=== PATIENT | female | born 1990 | race Caucasian/White ===

== ENCOUNTER 2020-08-16 15:24 | Outpatient (CLI) | payer BC, SELFPAY ==
--- NOTE | ~2020-08-16 | US_ITS ---
EXAMINATION: US OB <= 14 weeks fetus DATE: 08/16/2020 16:03 INDICATION: Depression of menstruation . Dating of during first trimester. TECHNIQUE: Real-time pelvic ultrasound utilizing both a transvaginal and transabdominal probe was pe rformed. The interpreting radiologist was not present for the study. COMPARISON: None. FINDINGS: The uterus measures 9.0 x 5.5 x 6.1 cm. There is an intrauterine gestational sac. A yolk sac and fet al pole are identified. The crown rump length measures 1.8 cm, which correlates with an estimated ges tational age of 8 weeks and 2 days. heart motion is identified measuring 178 beats per minute ( bpm) by M-mode Doppler. The right ovary measures 3.1 x 1.4 x 1.4 cm. The left ovary measures 2.7 x 1.6 x 1.3 cm. Vascular fred w identified in both ovaries on color Doppler. There is no free fluid in the pelvis. IMPRESSION: 1. Single living fetus with heart rate of 178 bpm. 2. Gestational age by ultrasound of 8 weeks 2 day(s) +/- 5 day(s) with ultrasound estimated date of delivery (BRITTANY) of 03/26/2021. Reviewed, dictated and finalized at location A. IMPRESSION: 1. Single living fetus with heart rate of 178 bpm. 2. Gestational age by ultrasound of 8 weeks 2 day(s) +/- 5 day(s) with ultraso und estimated date of delivery (BRITTANY) of 03/26/2021.
== END 2020-08-16 15:25 | disposition home or self-care (01) ==
LOC: ANHIMG 15:26
PROVIDERS: PCP Family Medicine; Visit Provider Obstetrics & Gynecology
DX: Z36.9 Encounter for antenatal screening, unspecified (principal); Z3A.08 8 weeks gestation of pregnancy
CPT/HCPCS: 76801

== ENCOUNTER → 2020-11-07 15:50 | Outpatient (CLI) | payer BC, SELFPAY ==
--- NOTE | ~2020-11-07 | US_ITS ---
EXAMINATION: US OB /maternal detail DATE: 11/07/2020 16:22 INDICATION: anatomic survey. TECHNIQUE: Real-time ultrasound of the pelvis was performed. COMPARISON: Ultrasound 08/16/2020 FINDINGS: There is a single living fetus in breech presentation. The placenta is anterior, 2.7 cm from the cer vix. heart rate is 163 beats per minute (bpm). The amniotic fluid volume is subjectively normal . The following biometric data were obtained: Biparietal diameter (BPD): 4.5 cm; head circumference (HC): 17.2 cm; abdominal circumference (AC): 14 .7 cm; femur length (FL): 3.1 cm. These measurements are concordant. Estimated weight is 316 g +/- 47 g, which correlates with 29th percentile when 03/26/21 is used as estimated date of delivery. As single measurements, these parameters are each equal to the following estimated gestational ages w ith ranges of +/- 2 standard deviations: BPD: 19 weeks 4 days (17 weeks 6 days - 21 weeks 2 days). HC: 19 weeks 5 days (18 weeks 2 days - 21 weeks 2 days). AC: 20 weeks 0 days (18 weeks 0 days - 22 weeks 0 days). FL: 19 weeks 5 days (17 weeks 6 days - 21 weeks 3 days). estimated gestational age based solely on measurements from this exam is 19 weeks 5 days +/- 1 weeks 3 days. The cerebral ventricles, cerebellum, cisterna magna, nuchal fold, lip/nose, and visualized portions o f the spine are normal. The heart is normal. The diaphragm, stomach, kidneys, and bladder are normal. There are two umbilical arteries to yield a 3-vessel cord. The cord insertion is normal. IMPRESSION: 1. Single living fetus in breech presentation. 2. Estimated weight is 316 g +/- 47 g, which correlates with 29th percentile when 03/26/21 is u sed as estimated date of delivery. This date was set by ultrasound on 08/16/2020. 3. Normal anatomic survey. Reviewed, dictated and finalized at location A. IMPRESSION: 1. Single living fetus in breech presentation. 2. Estimated weight is 316 g +/- 47 g, which correlates with 29th percen tile when 03/26/21 is used as estimated date of delivery. This date was set by yuval marie on 08/16/2020. 3. Normal anatomic survey.
== END ==
PROVIDERS: Visit Provider Obstetrics & Gynecology
DX: Z34.92 Encounter for supervision of normal pregnancy, unspecified, second trimester (principal); Z3A.19 19 weeks gestation of pregnancy
CPT/HCPCS: 76805

== ENCOUNTER → 2021-02-24 14:20 | Outpatient (CLI) | payer BC, SELFPAY ==
--- NOTE | ~2021-02-24 | US_ITS ---
US OB follow up DATE: 02/24/2021 14:40 INDICATION: Intrauterine gestation TECHNIQUE: Real-time imaging and Doppler analysis COMPARISON: 11/07/2020 obstetrical ultrasound examination FINDINGS: Live bae intrauterine gestation, fetus in vertex presentation. heart rate of 16 0 bpm. Anterior placenta. Three-vessel umbilical cord. Normal amount of amniotic fluid; and neck fluid index measures 12.4 cm. (5th percentile DEVI: 7.9 cm; 95th percentile DEVI: 24.9 cm). BPD: 8.7 cm; 35 weeks 1 day Head circumference 31.57 cm; 35 weeks 3 days Abdominal circumference 29.59 cm; 33 weeks 4 days Femur length 6.45 cm; 33 weeks 2 days Composite age by Hadlock formula based upon the current measurements would be 34 weeks 3 days +/- 2 w eeks 3 days with BRITTANY of 04/04/2021, compared to 03/26/2021 based upon the 08/16/2020 obstetrical ultrasou nd examination. Estimated weight is 2286 +/- 343 g. Femur length/BPD 74.19, within normal range of 71.0-87.0 Head circumference/abdominal circumference 1.07, within normal range of 0.94-1.11 Femur length/abdominal circumference 21.81, within normal range of 20.00-24.00 Femur length/head circumference 20.44, within normal range of 19.70-22.01 IMPRESSION: Vertex presentation DEVI 12.4 cm, normal Estimated weight is 2286 +/- 343 g Reviewed, dictated and finalized at Location A. Reviewed, dictated and finalized at location A. AGE MAKER
== END ==
PROVIDERS: Visit Provider Obstetrics & Gynecology
DX: Z34.93 Encounter for supervision of normal pregnancy, unspecified, third trimester (principal); Z3A.34 34 weeks gestation of pregnancy
CPT/HCPCS: 76816

== ENCOUNTER 2021-03-13 06:56 | Outpatient (CLI) | payer BC, SELFPAY ==
--- NOTE | ~2021-03-13 | US_ITS ---
EXAMINATION: US OB limited w BPP DATE: 03/13/2021 09:14 INDICATION: Intrauterine growth restriction. TECHNIQUE: Real-time pelvic ultrasound was performed. COMPARISON: Ultrasound 03/09/2021 FINDINGS: There is a single living fetus in vertex presentation. The placenta is anterior. heart rate is 142 beats per minute (bpm). The amniotic fluid index is 6.1 cm, which is low (5th percentile is 7.3 cm). The following biometric data were obtained: Biparietal diameter (BPD): 8.9 cm; head circumference (HC): 31.8 cm; abdominal circumference (AC): 34 .6 cm; femur length (FL): 6.9 cm. These measurements are discordant with FL/AC more than 2 standard deviations below the mean. Estimated weight is 3121 g +/- 468 g, which correlates with the 36th percentile when 03/26/21 is used as estimated date of delivery. As single measurements, these parameters are each equal to the following estimated gestational ages: BPD: 36 weeks 0 days. HC: 35 weeks 5 days. AC: 38 weeks 3 days. FL: 35 weeks 1 days. estimated gestational age based solely on measurements from this exam is 36 weeks 2 days +/- 2 weeks 4 days. Biophysical profile performed by the technologist: breathing (30 sec sustained breathing in 30 minutes): 2 out of 2 movement (3 gross body movements in 30 minutes): 2 out of 2 tone (one episode of cgmisnw-xgluvvdvi-mauqjfh limb movement): 2 out of 2 Amniotic fluid pocket (2 cm): 2 out of 2 Total score: 8 out of 8 IMPRESSION: 1. Single living fetus in vertex presentation. 2. Estimated weight is 3121 g +/- 468 g, which correlates with the 36th percentile when 2 is used as estimated date of delivery. This date was set by ultrasound on 08/16/2020. 3. Discordant biometrics with low FL/AC. 4. Biophysical profile 8 out of 8. 5. Oligohydramnios. Reviewed, dictated and finalized at location A. ER HELPER IMPRESSION: 1. Single living fetus in vertex presentation. 2. Estimated weight is 3121 g +/- 468 g, which correlates with the 36th percentile when 03/26/21 is used as estimated date of delivery. This date was se t by ultrasound on 08/16/2020. 3. Discordant biometrics with low FL/AC. 4. Biophysical profile 8 out of 8. 5. Oligohydramnios.
--- NOTE | 2021-03-13 07:45 | PC.NURSE ---
Called Dr. Galindo. Informed of negative ROM plus. 1 questionable variable noted on tracing with otherwise reactive tracing. BPP and DEVI orders. May D/C home if WNL.
--- NOTE | 2021-03-13 09:30 | PC.NURSE ---
Called Dr. Laguerre with ultrasound results. July D/C home.
== END 2021-03-13 09:33 | disposition home or self-care (01) ==
LOC: ANHOBOP 07:55 → ANHLDR 03-19 10:15
PROVIDERS: PCP Family Medicine; Visit Provider Obstetrics & Gynecology
DX: O42.90 Premature rupture of membranes, unspecified as to length of time between rupture and onset of labor, unspecified weeks of gestation (principal); Z3A.36 36 weeks gestation of pregnancy
CPT/HCPCS: 59025; 76815; 76819; 84112; 99199

== ENCOUNTER 2021-03-15 15:34 | Outpatient (RCR) | payer BC, SELFPAY ==
[2021-03-01 12:15] VITALS: BP 130/71; PULSE 72
[2021-03-01 12:30] VITALS: BP 121/77; PULSE 80
[2021-03-01 12:31] VITALS: BP 121/77; PULSE 91
[2021-03-05 14:00] VITALS: BP 125/70; PULSE 85
[2021-03-09 13:54] VITALS: BP 139/80; PULSE 80
[2021-03-12 14:14] VITALS: BP 113/62; PULSE 97
--- NOTE | ~2021-03-15 | US_ITS ---
EXAMINATION: US OB limited w BPP EXAM DATE: 03/15/2021 16:54 INDICATION: IUGR/ BPP and DEVI 3rd trimester. TECHNIQUE: Pelvic obstetrical transabdominal sonogram was performed by a technologist. There are mu ltiple grayscale and Doppler images available for interpretation. Comparison is made to prior examina tion from 03/13/2021. FINDINGS: There is a single fetus identified in vertex presentation with a heart rate of 140 beats pe r minute. The placenta is located in the anterior position. There is no sonographic evidence of retr oplacental hemorrhage identified. AMNIOTIC FLUID INDEX Quadrant 1: 1.9 cm Quadrant 2: 0 cm Quadrant 3: 3.0 cm Quadrant 4: 3.8 cm Amniotic fluid index: 8.4 cm. (Reported at 6.1 cm 2 days ago). (The 5th -- 95th percentile range is 7.3-23.9). BIOPHYSICAL PROFILE (performed by the technologist) breathing (30 sec sustained breathing in 30 minutes): 2 out of 2 movement (3 gross body movements in 30 minutes): 2 out of 2 tone (one episode of qmyunhe-wtfjfyrii-gpkuzij limb movement): 2 out of 2 Amniotic fluid pocket (2 cm): 2 out of 2 Total score: 8 out of 8 IMPRESSION: 1. Single fetus with heart rate of 140 bpm. 2. Normal biophysical profile score of 8 out of 8. 3. DEVI 8.4 cm, lower limits of normal. Reviewed, dictated and finalized at location A. [facility] IMPRESSION: 1. Single fetus with heart rate of 140 bpm. 2. Normal biophysical profile score of 8 out of 8. 3. DEIV 8.4 cm, lower limits of normal.
--- NOTE | ~2021-03-15 | US_ITS ---
EXAMINATION: US OB BPP wo non-stress DATE: 03/01/2021 12:59 SR. MANAGER MARKETING INDICATION: IUGR TECHNIQUE: Real-time transabdominal obstetric ultrasound. FINDINGS: Comparison to 02/24/2021 There is a single living fetus in vertex presentation. The placenta is anterior without placenta pre via. cardiac activity and movement is noted with a heart rate of 122 beats per minute. Biophysical profile: breathin of 2 movement: 2 of 2 tone: 2 of 2 Amniotic flud pocket: 2 of 2 Total score: 8 of 8 IMPRESSION: 1. Single living intrauterine in vertex presentation. 2: Total biophysical profile score of 8/8. Reviewed, dictated and finalized at location A. . MANAGER MARKETING
--- NOTE | ~2021-03-15 | US_ITS ---
EXAMINATION: US OB BPP wo non-stress DATE: 03/09/2021 13:49 INDICATION: Intrauterine growth retardation during third trimester of . TECHNIQUE: Real-time pelvic ultrasound was performed. The interpreting radiologist was not present fo r the study. COMPARISON: 03/01/2021 FINDINGS: There is a single living fetus in vertex presentation. The placenta is anterior. heart rate is 159 beats per minute (bpm). Biophysical profile performed by the technologist: breathing (30 sec sustained breathing in 30 minutes): 2 out of 2 movement (3 gross body movements in 30 minutes): 2 out of 2 tone (one episode of ruvegzi-rjrkuhxng-gdaarnr limb movement): 2 out of 2 Amniotic fluid pocket (2 cm): 2 out of 2 Total score: 8 out of 8 IMPRESSION: 1. Single living fetus in vertex presentation with heart rate of 159 bpm. 2. Biophysical profile 8 out of 8. Reviewed, dictated and finalized at location A. MAKER MAP
[2021-03-15 17:05] VITALS: BP 128/77; PULSE 83
--- NOTE | 2021-03-15 17:05 | PC.NURSE ---
Called Dr. Laguerre with SVE and ultrasound report. Orders received to change induction to Saturday evening.
== END 2021-04-14 21:02 | disposition home or self-care (01) ==
LOC: ANHOBOP 15:34
PROVIDERS: PCP Family Medicine; Visit Provider Obstetrics & Gynecology
DX: O36.5930 Maternal care for other known or suspected poor fetal growth, third trimester, not applicable or unspecified (principal); Z3A.36 36 weeks gestation of pregnancy; Z3A.37 37 weeks gestation of pregnancy; Z3A.38 38 weeks gestation of pregnancy
CPT/HCPCS: 59025; 76815; 76819

== ENCOUNTER 2021-03-17 16:55 | Inpatient (IN) | payer BC, SELFPAY ==
[2021-03-17] VITALS (7 sets, daily range): BP systolic 116–140; BP diastolic 72–83; PULSE 56–64; RESP 16; TEMP 36.9; BMI 36.3
--- NOTE | 2021-03-17 17:27 | LDADM ---
This patient, Hortencia Mcfarland, was admitted to Labor/Delivery/Recovery 107 on 03/17/21 at 16:55. Plans for labor, pain management and were discussed with patient. Patient/family oriented to hospital policies and general routines including ID bracelet, bed and alarms, visiting hours, pain management, procedures, bathroom and other care routines, personal items, smoking policy, room service/diet and guest tray routines, security routines, and visiting hours. Patient/Family are encouraged to report perceived risks to care and to ask questions if they do not understand what they are told or what they should do. See OBIX for further documentation.
[2021-03-17 17:40] LABS: Basophils Percent Auto 0.3 % (0.2-1.2); Eosinophils Absolute Auto 0.2 K/mm3 (0-0.3); Eosinophils Percent Auto 2.5 % (0-4.4); Hemoglobin 12.1 g/dL (12.0-15.0); Immature Granulocyte Absolute 0.03 K/mm3 (0.00-0.031); Immature Granulocyte Percent A 0.3 % (0-0.5); Lymphocytes Percent Auto 19.5 % (18.3-44.2); Mean Corpuscular HGB Conc 33.6 g/dl (32-36); Mean Corpuscular Hemoglobin 31.2 pg (26-34); Mean Corpuscular Volume 92.8 fl (80-100); Mean Platelet Volume 11.1 fl (7.4-10.4); Monocytes Absolute Auto 0.7 K/mm3 (0.1-0.6); Monocytes Percent Auto 7.3 % (2.6-8.5); Neutrophils Absolute Auto 6.8 K/mm3 (1.3-6.7); Neutrophils Percent Auto 70.1 % (45.5-73.1); Platelet Count Result 267 k/mm3 (150-375); Red Blood Count 3.88 M/mm3 (4.2-5.4); Red Cell Distribution Width 12.7 % (11.5-14.5); White Blood Count 9.8 K/mm3 (4.5-10.0)
[2021-03-17] MEDS: DINOPROSTONE 10 MG VAG INSERT VAGINAL (17:40)
[2021-03-18] VITALS (117 sets, daily range): BP systolic 90–137; BP diastolic 40–122; PULSE 50–177; RESP 16–22; TEMP 36.3–37.2; O2SAT 93–100
[2021-03-18] MEDS: fentaNYL CITRATE INJ (*CRX) 100 MCG/2 ML VIAL 50 MCG IV PUSH ×2 (00:24→05:14)
--- NOTE | 2021-03-18 06:15 | WPDANESEPP ---
Anes - Eval Pre Procedure Procedure: Labor epidural Date/Time: 03/18/21 06:15 Surgeon: Lamar Preop Diagnosis: Abd pain with contractions Pre Op Diagnosis: IOL Patient Data Age: 30 Gender: F Height: 1.6 m Weight: 93 kg Last Vital Signs Temp 98.3 F 03/18/21 06:13 Pulse 63 03/18/21 06:01 Resp 20 03/18/21 06:13 BP 136/81 03/18/21 06:01 Allergies Allergy/AdvReac Type Severity Reaction Status Date / Time latex Allergy Unknown Asthma Verified 02/18/20 16:22 Penicillins Allergy Unknown Nausea Verified 02/18/20 16:22 Home Medications Medication Instructions Recorded Confirmed Type albuterol sulfate 90 mcg/actuation 2 puff INHALATION Q4H PRN #8.5 gm 02/03/19 03/09/21 Rx aerosol inhaler PNV cmb#95-ferrous fumarate-FA 1 tablet PO DAILY 02/24/21 03/09/21 History [] docusate sodium [Colace] 50 mg PO DAILY 02/24/21 03/09/21 History famotidine [Pepcid] 20 mg PO DAILY 02/24/21 03/09/21 History fexofenadine [Candy] 180 mg PO DAILY 02/24/21 03/09/21 History Valtrex 500 mg PO BID 03/17/21 03/17/21 History Laboratory Tests 03/17/21 03/17/21 03/17/21 17:35 17:35 17:36 WBC 9.8 K/mm3 K/mm3 (4.5-10.0) RBC 3.88 M/mm3 L M/mm3 (4.2-5.4) Hgb 12.1 g/dL g/dL (12.0-15.0) Hct 36.0 % L % (37.0-47.0) MCV 92.8 fl fl (80-100) MCH 31.2 pg pg (26-34) MCHC 33.6 g/dl g/dl (32-36) RDW 12.7 % % (11.5-14.5) Plt Count 267 k/mm3 k/mm3 (150-375) MPV 11.1 fl H fl (7.4-10.4) Immature Gran % (Auto) 0.3 % % (0-0.5) Neut % (Auto) 70.1 % % (45.5-73.1) Lymph % (Auto) 19.5 % % (18.3-44.2) [place] % (Auto) 7.3 % % (2.6-8.5) Eos % (Auto) 2.5 % % (0-4.4) Baso % (Auto) 0.3 % % (0.2-1.2) Lymph # (Auto) 1.90 K/mm3 K/mm3 (0.9-3.2) [place] # (Auto) 0.7 K/mm3 H K/mm3 (0.1-0.6) Eos # (Auto) 0.2 K/mm3 K/mm3 (0-0.3) Baso # (Auto) 0.0 K/mm3 K/mm3 (0.0-0.1) Abs Immat Gran (auto) 0.03 K/mm3 K/mm3 (0.00-0.031) Absolute Neuts (auto) 6.8 K/mm3 H K/mm3 (1.3-6.7) Absolute Nucleated RBC 0.0 K/mm3 K/mm3 (0.0-0.012) Nucleated RBC % 0.0 % % (0.0-0.2) RPR Pending Blood Type O Positive Antibody Screen Negative Patient hx anesthesia problems: none Family hx anesthesia problems: none Results Review: All pre-operative results and documents have been reviewed as part of the pre-operative evaluation. [facility] Past Medical History Medical History Obesity and not yet delivered Family History Family History Father Hypertension Pancreatic cancer Grandparent Colon cancer Social History Social History Smoking status: Never smoker Alcohol intake: current Substance use: never Spiritual care concerns: No Exam Day of Procedure 03/18/21 06:15 Patient weight: obese Airway: Mallampati scale class II Neurological: alert and oriented
[2021-03-18] MEDS: fentaNYL CITRATE INJ (*CRX) 100 MCG/2 ML VIAL IV PUSH (07:20)
[2021-03-18] MEDS: LACTATED RINGERS 1,000 ML 125 ML IV CONT ×2 (07:22→08:15)
[2021-03-18] MEDS: OXYTOCIN 30 UNITS/NS 500 ML 30 UNITS/500 ML BAG 6 UNITS IV CONT (08:16)
[2021-03-18] MEDS: ONDANSETRON INJ 4 MG/2 ML VIAL IV PUSH (08:40)
--- NOTE | 2021-03-18 13:40 | WPDOBADMIT ---
Obstetrics - Admit Note Admission Note: record reviewed. No pertinent additions to the history and/or any subsequent changes in the physical findings that are not consistent with the expected course of the were found. Additions to the history and/or subsequent changes in the physical findings follow. None.
--- NOTE | 2021-03-18 13:41 | WPDHPUPDATE1 ---
History and Physical Update Update Date/Time: 03/18/21 13:41 History and Physical has been reviewed, including an updated exam of the patient. There are NO changes in the patient's condition. Risks, benefits, and alternatives have been discussed and questions answered. Patient agrees to proceed with procedure.
--- NOTE | 2021-03-18 13:41 | PM.OBPRVD ---
OB - Delivery Note Procedure events: Oligohydramnios and Placental Insufficiency Induction method: per cervidil protocol Delivery augmentation: rupture of membranes and pitocin Route of delivery: Episiotomy description: None Laceration Description: None Specimen: Yes Quantitative Blood Loss (ml): 200 Anesthesia type: Epidural Disposition: floor Narrative: Patient prepped and draped in usual manner for this procedure. Maternal expulsive efforts readily delivered vertex with nuchal cord noted and readily reduced. The rest of baby was delivered without difficulty cord was clamped and cut and baby was placed on maternal abdomen. Placenta delivered spontaneously and the uterus was well contracted with minimal bleeding. Cervix vagina vulva were inspected with no lacerations or tears. At this point the procedure was considered terminated with immediate postoperative condition of mother baby both good. [place] Baby Weeks of gestation at delivery: 38 gender: Female Weight (pounds): 5 Weight (ounces): 11 score one minute: 8 score five minutes: 9 AMG Delivery Billing Delivery Delivery: Delivery Charge
[2021-03-18] MEDS: OXYTOCIN 30 UNITS/NS 500 ML 30 UNITS/500 ML BAG 125 UNITS IV CONT (14:00)
[2021-03-18] MEDS: BENZOCAINE 20% AER SPR (*SP) 56 GM CAN 1 SPRAY TOPICAL (15:34)
[2021-03-18] MEDS: WITCH HAZEL 40 PADS 1 PAD TOPICAL (15:34)
[2021-03-18] MEDS: DOCUSATE SODIUM 100 MG CAPSULE PO (17:50)
[2021-03-18] MEDS: IBUPROFEN 600 MG TABLET PO (17:50)
[2021-03-19 04:57] LABS: Hematocrit 32.4 % (37.0-47.0); Hemoglobin 10.7 g/dL (12.0-15.0)
[2021-03-19] MEDS: ACETAMINOPHEN 325 MG TABLET 650 MG PO (07:36)
[2021-03-19] MEDS: MULTIVIT/MIN/PREN/FOL AC/IRON TABLET 1 TAB PO (07:36)
[2021-03-19] MEDS: DOCUSATE SODIUM 100 MG CAPSULE PO (07:36)
--- NOTE | 2021-03-19 07:36 | PM.OBDSVD ---
DS: Admitting Diagnosis Discharge Date 03/19/2021 Admitting Diagnosis OB - DS: Summary OB Procedures : None OB Procedures Intrapartum: Spontaneous Vag Delivery OB Procedures: : None Time Spent with Patient Time attestation: Total time spent providing and/or coordinating discharge services: DS: Data Data Completed and Pending Pending studies at discharge: Pending at discharge 03/18/21 13:32 Surgical [PTH] Routine Labs on day of discharge: Labs from last 24 hours 03/19/21 03:19 Hgb 10.7 L Hct 32.4 L Discharge Plan Discharge Discharging Clinician: Keshawn Laguerre Patient Disposition: Home, Self-Care Activity: as tolerated Diet: as tolerated Patient Instructions: Antibiotic Form Stand Alone Forms: General Discharge Information Follow-up/Referrals: Keshawn Laguerre MD [Physician] - 3 Weeks Discharge Medications: New ibuprofen 600 mg Tablet 600 mg PO Q6H PRN (Reason: Cramping) Qty: 30 RF: 0 Continued albuterol sulfate [ProAir HFA] 90 mcg/actuation HFA aerosol inhaler 2 puff INHALATION Q4H PRN (Reason: shortness of breath or wheezing/cough) Qty: 8.5 RF: 3 Colace 50 mg Capsule 50 mg PO DAILY RF: 0 famotidine [Pepcid] 20 mg Tablet 20 mg PO DAILY RF: 0 Candy 30 mg Tablet 180 mg PO DAILY RF: 0 PNV cmb#95-ferrous fumarate-FA [] 28 mg iron- 800 mcg Tablet 1 tablet PO DAILY RF: 0 Valtrex 500 mg PO BID RF: 0 Date of admission: 03/17/21 16:55 Primary Care Provider: Erin Cash Admitting Provider: Keshawn Laguerre Attending physician on admission: Keshawn Laguerre Condition: Stable
[2021-03-19 08:15] VITALS: BP 122/68; PULSE 69; RESP 20; TEMP 36.1
[2021-03-19 10:08] VITALS: PULSE 69; RESP 20; O2SAT 97
[2021-03-20 08:01] VITALS: BP 138/88; PULSE 89; RESP 16; TEMP 37.1; O2SAT 98
[2021-03-20 11:22] LABS: Rapid Plasma Reagin Non-Reactive (NonReactive)
== END 2021-03-19 16:45 | disposition home or self-care (01) | DRG 807 ==
LOC: ANHLDR 16:58 → ANHOB2 03-18 19:28
PROVIDERS: Admitting Provider Obstetrics & Gynecology; PCP Family Medicine; Visit Provider Obstetrics & Gynecology
DX: O41.03X0 Oligohydramnios, third trimester, not applicable or unspecified (principal); Z37.0 Single live birth; O36.5130 Maternal care for known or suspected placental insufficiency, third trimester, not applicable or unspecified; O69.81X0 Labor and delivery complicated by cord around neck, without compression, not applicable or unspecified; O36.5930 Maternal care for other known or suspected poor fetal growth, third trimester, not applicable or unspecified; O76 Abnormality in fetal heart rate and rhythm complicating labor and delivery; Z3A.38 38 weeks gestation of pregnancy
CPT/HCPCS: 36415; 85014; 85018; 85025; 86592; 86850; 86900; 86901; 88307; A9270; J2405; J2590; J3010; J7120

== ENCOUNTER 2021-11-02 16:43 | Emergency (ER) | payer BC, SELFPAY ==
[2021-11-02 16:50] VITALS: BP 125/69; PULSE 64; RESP 16; TEMP 36.5; O2SAT 99
--- NOTE | 2021-11-02 17:08 | ED.SKABFB ---
HPI - Skin/Abscess/Foreign Bdy General Stated complaint: possible infection on hip Time Seen by Provider: 11/02/21 17:00 Source: patient Mode of arrival: ambulatory Limitations: no limitations History of Present Illness HPI narrative: Ms. Mcfarland is a 31-year-old female patient presenting to the clinic today with complaints of a skin sore to her left hip that she thinks is possibly infected. She first noticed this a few days ago and it has gradually gotten bigger and more painful over the last day. She denies any fever chills Related Data Home Medications Medication Instructions Recorded Confirmed docusate sodium 50 mg capsule 50 mg PO DAILY 02/24/21 04/21/21 famotidine 20 mg tablet (Pepcid) 20 mg PO DAILY 02/24/21 07/12/21 fexofenadine 30 mg tablet 180 mg PO DAILY 02/24/21 07/12/21 vit no.95-ferrous 1 tablet PO DAILY 02/24/21 07/12/21 fumarate 28 mg-folic acid 800 mcg tablet () Valtrex 500 mg PO BID 03/17/21 07/12/21 Allergies Allergy/AdvReac Type Severity Reaction Status Date / Time latex Allergy Unknown Asthma Verified 04/21/21 08:40 Penicillins Allergy Unknown Nausea Verified 04/21/21 08:40 Review of Systems Review of Systems: Pertinent positives per HPI. Patient denies any fever, chills, rash, headache, visual changes, dizziness, cough, runny nose, sore throat, shortness of breath, chest pain, palpitations, nausea, vomiting, diarrhea, constipation, abdominal pain, or any urinary issues. 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 There is no relevant family history pertinent to the patient complaint. Exam Narrative: General: Well-developed, well nourished, in no apparent distress Head: Normocephalic, atraumatic. Cardio: Regular rate and rhythm, s1 and s2 normal, no murmur appreciated. Resp: Clear to auscultation bilaterally, no rhonchi, rales, wheezing or rubs. Integumentary: [place], warm, and dry, localized raised lesion with black scabbing to the left anterior hip. Redness and swelling with quarter size induration. Course Course Emergency Course: Portions of this record may have been created with voice recognition software. Level of Care: Express Care Visit Vital Signs Vital signs: Vital Signs Temperature 36.5 C 11/02/21 16:50 Pulse Rate 64 11/02/21 16:50 Respiratory Rate 16 11/02/21 16:50 Blood Pressure 125/69 11/02/21 16:50 Pulse Oximetry 99 11/02/21 16:50 Oxygen Delivery Room Air 11/02/21 16:50 Temperature 36.5 C 11/02/21 16:50 Pulse Rate 64 11/02/21 16:50 Respiratory Rate 16 11/02/21 16:50 Blood Pressure 125/69 11/02/21 16:50 Pulse Oximetry 99 11/02/21 16:50 Oxygen Delivery Room Air 11/02/21 16:50 Vital signs reviewed MDM - Skin/Abscess/Foreign Bdy MDM Narrative Medical decision making narrative: At the time of visit patient is resting comfortably on the exam table. I suspect that she has a skin infection to her left hip. I will send in a prescription for some Keflex as she is
== END 2021-11-02 17:21 | disposition home or self-care (01) ==
PROVIDERS: Emergency Provider Nurse Practitioner Family; PCP Family Medicine
DX: L08.9 Local infection of the skin and subcutaneous tissue, unspecified (principal); B96.89 Other specified bacterial agents as the cause of diseases classified elsewhere; E66.9 Obesity, unspecified; Z68.33 Body mass index [BMI] 33.0-33.9, adult
CPT/HCPCS: 99213; G0463

== ENCOUNTER 2022-05-13 11:48 | Emergency (ER) | payer BC, SELFPAY ==
[2022-05-13 11:56] VITALS: BP 138/78; PULSE 119; RESP 16; TEMP 37.4; O2SAT 100
--- NOTE | 2022-05-13 12:41 | ED.GENADULT ---
HPI - General Adult General Chief complaint: Upper Respiratory Infection Stated complaint: Fever/Sinus Source: patient Mode of arrival: ambulatory Limitations: no limitations History of Present Illness HPI narrative: Patient presents for evaluation of sore throat. She indicates week and half ago she had symptoms consistent with a common cold. Her and child had similar symptoms. Her cold symptoms improved. Two days ago she developed sore throat, body aches, and fever. No chills, nausea, vomiting, diarrhea. Tmax at home 103F. She has not taken any medication to assist with her symptoms. She does not smoke. Related Data Home Medications Medication Instructions Recorded Confirmed epinephrine 0.3 mg/0.3 mL 0.3 mg IM DIRECTED 05/13/22 05/13/22 injection, auto-injector norethindrone (contraceptive) 0.35 0.35 mg PO DAILY 05/13/22 05/13/22 mg tablet (Jencycla) Allergies Allergy/AdvReac Type Severity Reaction Status Date / Time latex Allergy Unknown Asthma Verified 05/13/22 11:50 Penicillins AdvReac Unknown Nausea Verified 05/13/22 12:40 Review of Systems Review of Systems: CONSTITUTIONAL: Reports fever. Denies chills, or sweats. EYES: Denies visual changes, redness, or discharge. ENT: reports sore throat.Denies rhinorrhea, congestion, or otalgia. CARDIOVASCULAR: Denies chest pain, palpitations, or edema. RESPIRATORY: Denies cough or dyspnea. GASTROINTESTINAL: Denies abdominal pain, nausea, vomiting, or diarrhea. GENITOURINARY: Denies dysuria or hematuria. SKIN: Denies rash or itching. MUSCULOSKELETAL: Reports generalized body aches NEUROLOGIC: Denies headache, numbness, dizziness, or weakness. PSYCHIATRIC: Denies anxiety or depression. 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 HEAD: Normocephalic, atraumatic. EYES: PERRLA and EOMI. ENT: Nares clear, no rhinorrhea or epistaxis. Mucous membranes moist. Bilateral tonsillar enlargement with erythema and white exudate. Uvula is midline. Bilateral TMs pearly sandoval nonbulging NECK: Supple. No adenopathy or masses. No carotid bruits or JVD CHEST: Clear to auscultation. No respiratory distress. No wheezes rales or rhonchi HEART: Regular rate and rhythm. No murmur heard. Normal peripheral pulses. ABDOMEN: Soft, nontender, nondistended, normal active bowel sounds. EXTREMITIES: Normal range of motion. No edema. SKIN: Warm, dry, no rash. NEURO: No focal deficits. Alert and oriented x3. PSYCH: Normal mood and affect. Course Course Emergency Course: This is a 32-year-old female who presented for evaluation of sick symptoms. Strep was positive. She did verify that she can take amoxicillin. Penicillin was listed as an allergy in her chart but she indicated simply causes nausea and she can tolerate amoxicillin quite well. Increase hydration. [id number] agents for symptom management. Follow up with primary provider. She is so advised on symptoms for which jolie
== END 2022-05-13 12:45 | disposition home or self-care (01) ==
PROVIDERS: Emergency Provider Nurse Practitioner; PCP Family Medicine
DX: J02.0 Streptococcal pharyngitis (principal); E66.9 Obesity, unspecified; Z68.33 Body mass index [BMI] 33.0-33.9, adult
CPT/HCPCS: 87804; 87880; 99213; G0463

== ENCOUNTER 2024-12-15 07:45 | Outpatient (CLI) | payer BC, SELFPAY ==
--- NOTE | ~2024-12-15 | MMUS_ITS ---
EXAMINATION: MM diagnostic brennon RT w logan, US breast RT limited INDICATION: 34-year old female; Presents for evaluation of palpable lump in the right breast felt by her. COMPARISON: Baseline TECHNIQUE: Digital breast tomosynthesis CC and MLO views of Right breast and tangential view of the palpable area in the Right breast were obtained with computer-aided detection to assist in interpretation of the study. A radiopaque skin marker was placed over the area of RIGHT breast palpable lump area. MAMMOGRAM FINDINGS: The breasts are heterogeneously dense, which may obscure small masses. There are 2 superficial circumscribed masses seen in the superior lateral quadrant. In addition there is a mass seen in the outer central at middle third. There are no other suspicious masses, calcifications, architectural distortion or any other abnormality in either breast. No suspicious mammographic abnormality correlates to the radiopaque skin marker. RIGHT BREAST ULTRASOUND FINDINGS: Targeted sonographic evaluation of the palpable area was completed. There is no sonographic abnormality that correlates to the area of palpable lump. At 9:00, 4.5 cm from the nipple, there is an hypoechoic circumscribed mass that measure 1.8 x 1.6 x 0.9 cm which correlates to the mammographic finding in the outer central breast. This has the appearance of a fibroadenoma. At 9:00, 4.5 cm from the nipple there is a superficial 0.7 x 0.4 x 0.7 cm circumscribed mass that has appearance of an intramammary lymph node which correlates to a mammographic finding in the superior lateral breast. At 9:00, 7 cm from the nipple there is a 0.6 x 0.4 x 0.5 cm benign-appearing lymph node with predominant fatty hilum which correlates to a mammographic finding. IMPRESSION: 1. No mammographic or sonographic finding correlates to the palpable lump in the RIGHT breast. 2. Benign findings within the upper outer RIGHT breast. 3. Probably benign right breast mass at 9:00 which most likely represent fibroadenoma. Short-term follow-up recommended. Recommendations: Clinical management of patient's palpable lump. Follow-up as clinically warranted. 6 month follow-up right breast ultrasound. BI-RADS 3, PROBABLY BENIGN Reviewed, dictated and finalized at location B. IMPRESSION: 1. No mammographic or sonographic finding correlates to the palpable lump in th e RIGHT breast. 2. Benign findings within the upper outer RIGHT breast. 3. Probably benign right breast mass at 9:00 which most likely represent fibroa denoma. Short-term follow-up recommended. Recommendations: Clinical management of patient's palpable lump. Follow-up as clinically warrant ed. 6 month follow-up right breast ultrasound. BI-RADS 3, PROBABLY BENIGN
== END 2024-12-15 07:46 | disposition home or self-care (01) ==
PROVIDERS: Visit Provider Obstetrics & Gynecology
DX: N63.12 Unspecified lump in the right breast, upper inner quadrant (principal)
CPT/HCPCS: 76642; 77061; 77065; G0279